=== PATIENT | female | born 1970 | race Two or more races ===

== ENCOUNTER 2024-08-06 13:13 | Inpatient (IN) | payer OTHER ==
[~2024-08-06] VITALS: Ht 162.6 cm; Wt 68.1 kg
[2024-08-06 14:29] LABS: Basophils # (auto) 0 10 ^3/uL (0-0.2); Basophils % (auto) 0.2 % (0.0-2.0); Eosinophils # (auto) 0 10 ^3/uL (0-0.8); Hematocrit 39.2 % (36.0-46.0); Hemoglobin 13.3 g/dL (12.2-16.2); Lymphocytes # (auto) 1.3 10 ^3/uL (0.4-5.4); Lymphocytes % (auto) 12.6 % (10.0-50.0); Mean Corpuscular Hemoglobin 30.8 pg (28.0-32.0); Mean Corpuscular Hgb Conc. 33.9 g/dL (32.0-36.0); Monocytes # (auto) 0.3 10 ^3/uL (0-1.3); Monocytes % (auto) 2.7 % (0.0-12.0); Neutrophils # (auto) 8.8 10 ^3/uL (1.6-8.6); Neutrophils % (auto) 84.5 % (37.0-80.0); Platelet Count (auto) 354 10^3/uL (140-450); Red Blood Cells 4.31 10^6/uL (4.0-5.20); Red Cell Distribution Width 13.7 % (11.8-14.3); White Blood Cell 10.4 10^3/uL (4.4-10.8)
[2024-08-06 15:24] LABS: Lactic Acid w/Reflex 3.2 mmol/L (0.4-2.0)
[2024-08-06 15:28] LABS: Alanine Aminotransferase 22 U/L (7-40); Albumin 4.6 g/dL (3.2-4.8); Alkaline Phosphatase 115 U/L (46-116); Anion Gap 12 (5-15); Aspartate Aminotransferase 22 U/L (13-40); Bilirubin, Total 0.6 mg/dL (0.2-1.0); Blood Urea Nitrogen 16 mg/dL (9-23); Calcium 10.3 mg/dL (8.7-10.4); Carbon Dioxide 22 mmol/L (20-30); Chloride 105 mmol/L (98-107); Glucose 158 mg/dL (74-106); Lipase 32 U/L (12-53); Potassium 3.8 mmol/L (3.5-5.1); Sodium 139 mmol/L (136-145)
[2024-08-06 15:29] LABS: Total Protein 7.1 g/dL (5.7-8.2)
[2024-08-06] MEDS: SODIUM CHLORIDE 0.9% 1,000 ML IV ONE (16:10)
[2024-08-06] MEDS: ONDANSETRON HCL 4 MG/2 ML VIAL IV ONE (16:16)
[2024-08-06] MEDS: METOCLOPRAMIDE HCL 5MG/ml INJ 2ml VIAL IV ONE (21:57)
[2024-08-06] MEDS: KETOROLAC TROMETH 30 MG/ML 1ML VIAL IV ONE (21:57)
[2024-08-06] MEDS: MECLIZINE HCL 25 MG TAB PO ONE (23:00)
[2024-08-07] MEDS ORDERED: HYDROmorphone HCL 2 MG/ML VL/or syr IV PRN (01:00)
[2024-08-07] MEDS: SODIUM CHLORIDE 0.9% 1,000 ML IV SCH (04:59)
[2024-08-07 05:10] LABS: Basophils # (auto) 0 10 ^3/uL (0-0.2); Basophils % (auto) 0.1 % (0.0-2.0); Eosinophils # (auto) 0 10 ^3/uL (0-0.8); Eosinophils % (auto) 0.2 % (0.0-7.0); Hematocrit 36.2 % (36.0-46.0); Hemoglobin 12.4 g/dL (12.2-16.2); Lymphocytes # (auto) 2.3 10 ^3/uL (0.4-5.4); Lymphocytes % (auto) 21.7 % (10.0-50.0); Mean Corpuscular Hemoglobin 31.2 pg (28.0-32.0); Mean Corpuscular Hgb Conc. 34.4 g/dL (32.0-36.0); Mean Corpuscular Volume 90.7 fL (80.0-100.0); Monocytes # (auto) 0.8 10 ^3/uL (0-1.3); Monocytes % (auto) 7.5 % (0.0-12.0); Neutrophils # (auto) 7.4 10 ^3/uL (1.6-8.6); Neutrophils % (auto) 70.5 % (37.0-80.0); Nucleated Red Blood Cells % 0.1 %; Platelet Count (auto) 309 10^3/uL (140-450); Red Blood Cells 3.99 10^6/uL (4.0-5.20); Red Cell Distribution Width 14.1 % (11.8-14.3); White Blood Cell 10.5 10^3/uL (4.4-10.8)
[2024-08-07 05:26] LABS: Alanine Aminotransferase 18 U/L (7-40); Albumin 4.5 g/dL (3.2-4.8); Alkaline Phosphatase 100 U/L (46-116); Anion Gap 6 (5-15); Aspartate Aminotransferase 17 U/L (13-40); BUN/Creatinine Ratio 17.9 (10.0-20.0); Bilirubin, Total 0.5 mg/dL (0.2-1.0); Blood Urea Nitrogen 17 mg/dL (9-23); Calcium 9.5 mg/dL (8.7-10.4); Carbon Dioxide 23 mmol/L (20-30); Chloride 110 mmol/L (98-107); Glucose 95 mg/dL (74-106); Potassium 3.7 mmol/L (3.5-5.1); Sodium 139 mmol/L (136-145)
[2024-08-07] MEDS ORDERED: MORPHINE SULFATE INJ 2 MG/ml SYRG IV PRN (06:00)
[2024-08-07] MEDS ORDERED: NITROGLYCERIN 0.4 MG SL TAB SL PRN (06:00)
[2024-08-07] MEDS: PANTOPRAZOLE 40 MG/10 ML VIAL INJ IV SCH (09:47)
[2024-08-07] MEDS: ASPirin 81 mg TAB PO SCH (09:47)
[2024-08-07 13:58] LABS: Urine Bacteria None Seen /hpf (None Seen)
[2024-08-07 14:14] LABS: Urine Blood 1+ /uL (Negative); Urine Clarity Turbid (Clear); Urine Color Yellow (Yellow); Urine Mucus MODERATE (None Seen); Urine Protein, UAD 1+ (Negative); Urine Specific Gravity 1.033 (1.001-1.035); Urine Urobilinogen Normal (Negative); Urine WBC 10 /hpf (0 - 5)
[2024-08-07 15:13] VITALS: PULSE 71; RESP 16; O2SAT 96
[2024-08-07 17:00] VITALS: BP 112/59; PULSE 67; RESP 16; TEMP 98.2; O2SAT 100
[2024-08-07 20:00] VITALS: PULSE 68; RESP 18; O2SAT 96
[2024-08-07 21:00] VITALS: BP 118/63; PULSE 58; RESP 17; TEMP 98.4; O2SAT 95
[2024-08-08] VITALS (8 sets, daily range): BP systolic 109–119; BP diastolic 52–70; PULSE 61–72; RESP 16–18; TEMP 97.9–98.7; O2SAT 92–98
[2024-08-08 06:18] LABS: Alanine Aminotransferase 15 U/L (7-40); Alkaline Phosphatase 91 U/L (46-116); Anion Gap 6 (5-15); Aspartate Aminotransferase 17 U/L (13-40); BUN/Creatinine Ratio 13.5 (10.0-20.0); Bilirubin, Total 0.5 mg/dL (0.2-1.0); Blood Urea Nitrogen 13 mg/dL (9-23); Calcium 9.4 mg/dL (8.7-10.4); Carbon Dioxide 27 mmol/L (20-30); Chloride 107 mmol/L (98-107); Glucose 76 mg/dL (74-106); Potassium 3.8 mmol/L (3.5-5.1); Sodium 140 mmol/L (136-145); Total Protein 6.2 g/dL (5.7-8.2)
[2024-08-08 06:31] LABS: Basophils # (auto) 0 10 ^3/uL (0-0.2); Basophils % (auto) 0.5 % (0.0-2.0); Eosinophils # (auto) 0.1 10 ^3/uL (0-0.8); Eosinophils % (auto) 1.4 % (0.0-7.0); Hematocrit 33.8 % (36.0-46.0); Hemoglobin 11.6 g/dL (12.2-16.2); Lymphocytes # (auto) 2.3 10 ^3/uL (0.4-5.4); Lymphocytes % (auto) 32.9 % (10.0-50.0); Mean Corpuscular Hemoglobin 31.3 pg (28.0-32.0); Mean Corpuscular Hgb Conc. 34.3 g/dL (32.0-36.0); Mean Corpuscular Volume 91.2 fL (80.0-100.0); Monocytes # (auto) 0.5 10 ^3/uL (0-1.3); Monocytes % (auto) 7.8 % (0.0-12.0); Neutrophils # (auto) 3.9 10 ^3/uL (1.6-8.6); Neutrophils % (auto) 57.4 % (37.0-80.0); Nucleated Red Blood Cells % 0.2 %; Platelet Count (auto) 230 10^3/uL (140-450); Red Blood Cells 3.71 10^6/uL (4.0-5.20); Red Cell Distribution Width 13.8 % (11.8-14.3); White Blood Cell 6.9 10^3/uL (4.4-10.8)
[2024-08-08] MEDS: ACETAMINOPHEN 325 MG TAB PO PRN (10:19)
[2024-08-08] MEDS: ONDANSETRON HCL 4 MG/2 ML VIAL IV PRN (10:21)
[2024-08-08 13:13] LABS: Erythrocyte Sedimentation Rate 9 mm/hr (0-20)
[2024-08-09] VITALS (9 sets, daily range): BP systolic 96–118; BP diastolic 50–76; PULSE 57–76; RESP 16–17; TEMP 97.6–98.6; O2SAT 95–100
[2024-08-09] MEDS: IOHEXOL 350 MG/ML 100ML IJ ONE (14:01)
[2024-08-09] MEDS: DOCUSATE SOD 100 MG CAP PO PRN (20:36)
[2024-08-10 01:03] VITALS: BP 112/71; PULSE 76; RESP 17; TEMP 98.2; O2SAT 99
[2024-08-10 05:00] VITALS: BP 106/52; PULSE 68; RESP 17; TEMP 98.4; O2SAT 99
[2024-08-10 08:00] VITALS: PULSE 64; PULSE 91; RESP 14
[2024-08-10 09:00] VITALS: BP 115/79; PULSE 91; RESP 14; TEMP 97.8; O2SAT 96
[2024-08-10] MEDS ORDERED: MECL1TAB42 PO (10:35)
[2024-08-10 12:04] VITALS: BP 115/79; PULSE 91; RESP 14; TEMP 97.8; O2SAT 96
[2024-08-10 13:00] VITALS: BP 115/75; PULSE 76; RESP 14; TEMP 97.6; O2SAT 96
== END 2024-08-10 13:29 | disposition home or self-care (01) | DRG 392 ==
LOC: EDBD 13:13 → ER 13:13 → TELE 08-07 05:48 → TELE-CENTR 08-07 15:11
PROVIDERS: ADMIT Nurse Practitioner Family; ATTEND Nurse Practitioner Acute Care
DX: K52.9 Noninfective gastroenteritis and colitis, unspecified (principal); E87.20 Acidosis, unspecified; K29.70 Gastritis, unspecified, without bleeding; R07.9 Chest pain, unspecified; R42 Dizziness and giddiness; Z88.5 Allergy status to narcotic agent
CPT/HCPCS: 36415; 71250; 71275; 74176; 80053; 81001; 83036; 83605; 83690; 84443; 84484; 85025; 85379; 85652; 93005; G0378; J1885; J2405; J2470